=== PATIENT | female | born 1945 | race Caucasian/White ===

== ENCOUNTER 2019-05-02 14:13 | Emergency (ER) | payer MEDICARE ==
[~2019-05-02] VITALS: Ht 160 cm; Wt 55.5 kg
[2019-05-02 14:40] VITALS: BP 104/69
== END 2019-05-02 15:42 | disposition home or self-care (01) ==
LOC: ER 14:14
DX: S80.02XA Contusion of left knee, initial encounter (principal); I10 Essential (primary) hypertension; W18.39XA Other fall on same level, initial encounter; Y93.01 Activity, walking, marching and hiking; Y92.89 Other specified places as the place of occurrence of the external cause; Y99.8 Other external cause status
CPT/HCPCS: 73562; 73564; 99283

== ENCOUNTER 2019-06-03 22:46 | Emergency (ER) | payer MEDICARE ==
[~2019-06-03] VITALS: Ht 160 cm; Wt 54.5 kg
[2019-06-04] MEDS ORDERED: dexamethasone sod phosphate 10mg/ml inj PO STA (00:07)
[2019-06-04] MEDS ORDERED: ondansetron 4mg rapidly disintigrating tab PO ONE (00:10)
[2019-06-04] MEDS ORDERED: normal saline 1000ML IV soln IVB ONE (00:10)
[2019-06-04] MEDS ORDERED: diphenhydrAMINE 50 mg/ml inj IV ONE (00:10)
--- NOTE | 2019-06-04 00:35 | NUR ---
ATEMPTED IV X 2 REQUEST FLOAT TO TRY
--- NOTE | 2019-06-04 01:14 | NUR ---
OBTAINED IV ACCESS MEDICATIONS GIVEN, PT TOLERATED WELL
--- NOTE | 2019-06-04 02:15 | NUR ---
PT STATES SHE IS FEELING A LITTLE BETTER, NO NEEDS AT THIS TIME
[2019-06-04] MEDS ORDERED: famotidine 20mg tablet PO ONE (02:55)
[2019-06-04 03:38] VITALS: BP 111/58
== END 2019-06-04 03:41 | disposition home or self-care (01) ==
LOC: ER 22:47
DX: T78.49XA Other allergy, initial encounter (principal); I10 Essential (primary) hypertension; Z88.8 Allergy status to other drugs, medicaments and biological substances; X58.XXXA Exposure to other specified factors, initial encounter
CPT/HCPCS: 96374; 99284; J1100; J1200; J2405; J7030

== ENCOUNTER 2019-09-14 16:04 | Emergency (ER) | payer MEDICARE ==
[~2019-09-14] VITALS: Ht 162.6 cm; Wt 56.8 kg
[2019-09-14 16:14] VITALS: BP 119/46
[2019-09-14] MEDS ORDERED: ibuprofen tablet 400 MG TABLET PO ONE (18:15)
[2019-09-14] MEDS ORDERED: acetaminophen 325mg tablet PO ONE (18:15)
[2019-09-14] MEDS ORDERED: METO25TA6 PO (20:20)
== END 2019-09-14 21:06 | disposition home or self-care (01) ==
LOC: ER 16:05
DX: R51 Headache (principal); I10 Essential (primary) hypertension; Z88.8 Allergy status to other drugs, medicaments and biological substances; Z79.899 Other long term (current) drug therapy
CPT/HCPCS: 70450; 99284

== ENCOUNTER 2020-10-22 17:58 | Emergency (ER) | payer MEDICARE ==
[~2020-10-22] VITALS: Ht 162.6 cm; Wt 61.3 kg
[~2020-10-22 17:58] MED LIST: METO25TA6 PO
[2020-10-22] MEDS ORDERED: PRED20TA PO (21:06)
[2020-10-22] MEDS ORDERED: diphenhydrAMINE 25mg capsule PO ONE (21:10)
[2020-10-22] MEDS ORDERED: dexamethasone 4mg tablet PO ONE (21:10)
[2020-10-22 21:45] VITALS: BP 126/68
== END 2020-10-22 21:40 | disposition home or self-care (01) ==
LOC: ER 17:58
DX: L29.8 Other pruritus (principal); T38.0X5A Adverse effect of glucocorticoids and synthetic analogues, initial encounter; T45.0X5A Adverse effect of antiallergic and antiemetic drugs, initial encounter; I10 Essential (primary) hypertension; Z88.8 Allergy status to other drugs, medicaments and biological substances; Z79.899 Other long term (current) drug therapy; Y92.89 Other specified places as the place of occurrence of the external cause
CPT/HCPCS: 99283; Q0163